=== PATIENT | female | born 1965 | race Caucasian/White ===

== ENCOUNTER 2024-04-02 00:43 | Observation (INO) ==
--- NOTE | 2024-04-02 01:00 | Emergency Department Note ---
History of Present Illness General Chief complaint: Abdominal Pain Stated complaint: SEVERAL ABDOMINAL PAIN Time Seen by Provider: 04/02/24 00:53 History of Present Illness Maximum Pain Intensity: 9 This 58-year-old female with no prior abdominal surgeries with type 2 diabetes managed by diet presents ER complaining of severe right upper quadrant epigastric pain tonight. Patient states she had a grilled cheese for dinner that she made herself. She tried to go the bathroom and make yourself vomit with no relief of symptoms. No history of similar symptoms in the past. Patient denies chest pain, dyspnea, fever, chills, flulike illness. Home Medications Medication Instructions Recorded Confirmed Type cholecalciferol (vitamin D3) 50 50 mcg PO DAILY 09/28/22 01/17/24 History mcg (2,000 unit) capsule multivitamin 1 tab PO DAILY 09/28/22 01/10/24 History niacin 50 mg tablet 50 mg PO DAILY 09/28/22 01/10/24 History omega 2-bzx-qcu-fish oil 60 mg-90 1 cap PO DAILY 09/28/22 01/10/24 History mg-500 mg capsule (Fish Oil) Juice Plus 1 cap PO DAILY 01/10/24 01/17/24 History magnesium 1 tab PO HS 01/10/24 01/10/24 History Allergies Allergy/AdvReac Type Severity Reaction Status Date / Time No Known Drug Allergies Allergy Verified 01/17/24 07:57 Past Med/Surg History Problem List (Updated 04/02/24 @ 04:08 by Shannon Casper PA-C) Abdominal pain, acute (Acute) Biliary colic (Acute) Type 2 diabetes mellitus with obesity Medical History PONV (postoperative nausea and vomiting) Prediabetes "I am no longer considered Type 2 but prediabetic." Diet Migraines "seasonal" HPV (human papilloma virus) infection hx Surgical History Hx of wisdom tooth extraction History of cryosurgery cervix- related to HPV - Hx of colonoscopy History of laminectomy 1991 Family History Grandfather (Maternal) Prostate cancer Grandmother Breast cancer Paternal & Maternal Father Thyroid disease Mother Thyroid disease Brother Parathyroid disease Grandfather (Paternal) Stroke Other Cancer Denies family history of Sudden Ovarian cancer Heart disease Myocardial infarction Colorectal cancer Social History Smoking Status: Never smoker Second Hand Exposure: No; Do You Dip or Chew Tobacco: No; Hx Alcohol Use: No Hx Substance Use: No Preferred Language: [place] Communication Ability: Effective Assembler Wire Mesh Gate Required: No Beliefs That Will Affect Care: None marital status: Single Current Living Situation: Alone current occupational status: employed current occupation: Physical Therapist Feels Safe at Home: Yes Childhood Exposure to Second-Hand Smoke: No Diet: regular Physical Activity Frequency: 3-4 Times per Week Seatbelt Use: always Assistive Devices: Glasses Review of Systems A total of 10 systems reviewed and were otherwise negative Physical Exam Vital Signs Vital Signs - 24 hr 04/02/24 00:47 04/02/24 00:57 04/02/24 01:26 Temperature 36.4 C L Temperature Source Temporal Artery Scan Pulse Rate 91 H 85 99 H Pulse Rate [Apical] Pulse Rate from SpO2 Sensor Pulse Rhythm Regular Pulse Rhythm [Apical] Respiratory Rate 22 Respiratory Effort / Characteristics Non-Labored Spontaneous Respiratory Depth Normal Respiratory Pattern Blood Pressure 178/89 H Blood Pressure [Right Arm] Blood Pressure Mean 118 Blood Pressure Mean [Right Arm] Pulse Oximetry 100 100 Oxygen Delivery Method Room Air Room Air Sepsis Recent Fever Within 48 Hours No Sepsis New/Unexplained Change in Mental Status No Sepsis Action Taken by Nursing No Action Required 04/02/24 01:36 04/02/24 01:54 04/02/24 02:30 Temperature Temperature Source Pulse Rate 87 84 82 Pulse Rate [Apical] Pulse Rate from SpO2 Sensor 88 84 Pulse Rhythm Pulse Rhythm [Apical] Respiratory Rate 20 22 20 Respiratory Effort / Characteristics Respiratory Depth Respiratory Pattern Blood Pressure 175/94 H Blood Pressure [Right Arm] Blood Pressure Mean 118 Blood Pressure Mean [Right Arm] Pulse Oximetry 98 99 100 Oxygen Delivery Method Room Air Room Air Room Air Sepsis Recent Fever Within 48 Hours Sepsis New/Unexplained Change in Mental Status Sepsis Action Taken by Nursing 04/02/24 02:48 04/02/24 02:56 04/02/24 03:00 Temperature Temperature Source Pulse Rate 88 79 Pulse Rate [Apical] 79 Pulse Rate from SpO2 Sensor Pulse Rhythm Pulse Rhythm [Apical] Regular Respiratory Rate 20 18 18 Respiratory Effort / Characteristics Non-Labored Spontaneous Respiratory Depth Normal Respiratory Pattern Regular Blood Pressure 161/99 H 171/98 H Blood Pressure [Right Arm] 175/94 H Blood Pressure Mean 117 149 Blood Pressure Mean [Right Arm] 121 Pulse Oximetry 100 100 100 Oxygen Delivery Method Room Air Room Air Room Air Sepsis Recent Fever Within 48 Hours Sepsis New/Unexplained Change in Mental Status Sepsis Action Taken by Nursing 04/02/24 03:00 Temperature Temperature Source Pulse Rate 101 H Pulse Rate [Apical] Pulse Rate from SpO2 Sensor Pulse Rhythm Pulse Rhythm [Apical] Respiratory Rate 23 Respiratory Effort / Characteristics Respiratory Depth Respiratory Pattern Blood Pressure 171/98 H Blood Pressure [Right Arm] Blood Pressure Mean 149 Blood Pressure Mean [Right Arm] Pulse Oximetry 98 Oxygen Delivery Method Room Air Sepsis Recent Fever Within 48 Hours Sepsis New/Unexplained Change in Mental Status Sepsis Action Taken by Nursing VITALS: Vitals are noted on the nurse's note and reviewed by myself. Vital signs stable. GENERAL: Pleasant female who appears in pain, in no acute distress, nondiaphoretic, well-developed well-nourished. SKIN: Capillary reflex less than 2 seconds. HEENT: Normocephalic. PERRLA. EOMI. Nares patent. Mucous membranes moist. Neck is supple without nuchal rigidity. HEART: Regular rate and rhythm LUNGS: Clear to auscultation bilaterally without wheezes, rales or rhonchi. No retractions or accessory muscle use. ABDOMEN: Positive bowel sounds x 4. Normal tympanic percussion. Soft, tender to palpation right upper quadrant, without masses or organomegaly. No guarding or rebound tenderness. no CVA tenderness MUSCULOSKELETAL: No gross musculoskeletal defects. NEURO: Patient was alert and oriented to person place and time. No focal neurological deficits. Course Administered Medications Morphine Sulfate (Morphine Sulfate 4 Mg/Ml 1 Ml Carp\\Vial) 4 mg IV Q15M PRN PRN Reason: Pain Stop: 04/16/24 00:56 Last Admin: 04/02/24 02:46 Dose: 4 mg Documented By: Admin: 04/02/24 01:27 Dose: 4 mg Documented By: ASW Discontinued Medications Famotidine (Pepcid 20mg Iv Push) 20 mg in 5 mls @ 2.5 mls/min IV NOW STA Stop: 04/02/24 00:58 Last Admin: 04/02/24 02:29 Dose: 2.5 mls/min Documented By: REBECCA Ioversol (Optiray 320 100ml) 100 ml IV ONCE ONE Stop: 04/02/24 03:18 Last Admin: 04/02/24 03:18 Dose: 93 ml Documented By: ELIS Ondansetron HCl (Ondansetron Inj 2 Mg/Ml 2 Ml Vial) 4 mg IV NOW STA Stop: 04/02/24 00:58 Last Admin: 04/02/24 01:27 Dose: 4 mg Documented By: DREW Ondansetron HCl (Ondansetron Inj 2 Mg/Ml 2 Ml Vial) 4 mg IV NOW STA Stop: 04/02/24 02:35 Last Admin: 04/02/24 02:46 Dose: 4 mg Documented By: REBECCA Medical Decision Making Medical Records Attestation: I reviewed the patient's medical records. Home Medications Current Medication List: was personally reviewed by me Laboratory Data Attestation: I reviewed the patient's lab results. 04/02/24 01:20 04/02/24 01:20 Lab Results 04/02/24 04/02/24 Range/Units 01:20 02:27 WBC 10.67 (4.8-10.8) K/ul RBC 4.73 (4.20-5.40) M/uL Hgb 13.7 (12.0-16.0) g/dl Hct 40.5 (37.0-47.0) % MCV 85.6 (80.0-100.0) fL MCH 29.0 (25.0-34.0) pg MCHC 33.8 (32.0-36.0) g/dL RDW Std Deviation 43.8 (36.4-46.3) fL RDW Coeff of [place]onzo 14.0 (11.5-14.5) % Plt Count 287 (130-400) K/uL MPV 9.8 (9.4-12.4) fL Immature Gran % (Auto) 0.3 % Neut % (Auto) 70.9 % Lymph % (Auto) 21.6 % Walton % (Auto) 5.6 % Eos % (Auto) 1.0 % Baso % (Auto) 0.6 % Neut # (Auto) 7.56 H (1.40-6.50) K/uL Lymph # (Auto) 2.31 (1.20-3.40) K/uL Walton # (Auto) 0.60 H (0.11-0.59) K/uL Eos # (Auto) 0.11 (0.00-0.50) K/uL Baso # (Auto) 0.06 (0.00-0.20) K/uL Immature Gran # (Auto) 0.03 (0.01-0.20) K/uL Sodium 139 (136-145) mmol/L Potassium 3.5 (3.5-5.1) mmol/L Chloride 103 (98-107) mmol/L Carbon Dioxide 26 (21-32) mmol/L Anion Gap 10 (3-11) BUN 13 (6-23) mg/dl Creatinine 0.82 (0.6-1.2) mg/dl Est Cr Clr Drug Dosing 84.6 ml/min eGFR 83.90 BUN/Creatinine Ratio 15.9 (10-20) Glucose 129 H (70-99(Fasting)) mg/dl Calcium 9.6 (8.6-10.3) mg/dl Total Bilirubin 0.4 (0.2-1.0) mg/dl AST 19 (13-39) U/L ALT 16 (7-52) U/L Alkaline Phosphatase 62 (34-104) U/L Troponin I High Sens 3.2 (0-14) pg/ml Total Protein 8.0 (6.0-8.3) gm/dl Albumin 4.7 (3.4-5.0) gm/dl Globulin 3.3 (2.5-4.0) gm/dl Albumin/Globulin Ratio 1.4 (0.9-2) Lipase 45 (11-82) U/L Urine Color Yellow Urine Appearance Clear (Clear) Urine pH 7.5 (4.5-7.5) Ur Specific [place] 1.012 (1.000-1.030) Urine Protein Negative (Negative) Urine Glucose (UA) Negative (Negative) Urine Ketones Trace H (Negative) Urine Blood Negative (Negative) Urine Nitrite Negative (Negative) Urine Bilirubin Negative (Negative) Urine Urobilinogen Negative (Negative) Ur Leukocyte Esterase Trace H (Negative) Urine WBC (Auto) 0-5 (0-5) /hpf Urine RBC (Auto) 0-2 (0-2) /hpf U Hyaline Cast (Auto) 0-2 (0-2) /lpf U Epithel Cells (Auto) 0-2 (0-2) /hpf Urine Bacteria (Auto) None Seen (None Seen) Imaging Data Attestation: I personally reviewed and interpreted this imaging study as follows: Radiologist's Impression: Gallbladder Ultrasound 04/02/24 00:58 EXAM: US gallbladder CLINICAL HISTORY: HX: NO PREV. RUQ PAIN. TECH NOTES: EXAM LIMITED BY INCREASED BODY HABITUS, BMI 35. PANC: LIMITED VIS DUE TO OVERLYING BOWEL. LIVER: 16.5 cm. ECHOGENIC REGION SUP RT LOBE,?FOCAL FATTY REGION. GB: WALL 1.8 mm. SMALL, SHADOWING, MOBILE?STONES, GRAVEL-SIZED. PT WAS GIVEN PAIN MEDS BEFORE EVAL, UNABLE TO ASSESS CHOU''S SIGN. CBD: 2.8 mm. LIMITED VIS RT KID: NO HYDRO. TECHNIQUE: Limited ultrasound of the liver and gallbladder was performed in grayscale and Doppler. Multiple images were obtained in transverse and longitudinal planes. COMPARISON: No prior studies are available for comparison. FINDINGS: Limited evaluation due to patient-related factors and overlying bowel gas shadows. Liver: The liver measures 16.5 cm in length. Mildly heterogeneous parenchymal echotexture of the liver, with a hyperechoic area in the superior right lobe. Hepatic vasculature appears normal. Gallbladder: The gallbladder is visualized and appears normal in size. The gallbladder wall measures 1.8 mm in thickness. A few small non-shadowing echogenic calculi are seen near the gallbladder neck. A focal cystic area along the gallbladder fundus may represent a Phrygian cap with possible internal echogenic shadowing calculi. No wall thickening or pericholecystic fluid was noted. No evidence of gallbladder wall edema or signs of acute cholecystitis. Biliary Tree: Common bile duct diameter: 2.8 mm. The common bile duct is within normal limits in caliber and not dilated. No evidence of choledocholithiasis or biliary obstruction. Additional: No hydronephrosis in the right kidney. IMPRESSION: 1. Limited evaluation due to patient-related factors and overlying bowel gas shadows. 2. Cholelithiasis, without any evidence of acute cholecystitis. 3. A focal cystic area along the gallbladder fundus may represent a Phrygian cap with possible internal shadowing calculi. 4. No evidence of choledocholithiasis or biliary obstruction. 5. Borderline enlarged liver. 6. Mildly heterogeneous parenchymal echotexture of the liver, with a hyperechoic area in the superior right lobe. Further evaluation with triphasic CT liver/MRI should be considered. Electronically signed by Candy Del Real 04-02-2024 03:26 AM Abdomen/Pelvis CT 04/02/24 02:36 EXAM: CT abd pelvis IV con only CLINICAL HISTORY: 93 ML OPTIRAY 320, PAIN AT RUQ TECHNIQUE: Contiguous axial images were obtained from the level of the diaphragm to the pubic symphysis without and with intravenous contrast. Coronal and sagittal reconstructions were likewise performed and indicated to increase the sensitivity for detecting clinically relevant pathology. If IV contrast material had not been administered, the likelihood of detecting abnormalities relevant to the patient's condition would have been substantially decreased. CT scan was performed according to ALARA (as low as reasonable achievable). COMPARISON: None. FINDINGS: The visualized lung bases are clear. The liver is normal in size and reduced attenuation. No focal liver lesions are seen. There is no intra or extrahepatic biliary ductal dilatation. Hepatic vasculature is patent. Gallbladder is overdistended. No radiodense calculi are noted within it. Minimal pericholecystic fat stranding is noted. A small 7 x 7 mm homogeneously enhancing reactive pericholecystic lymph node is noted. Homogeneously enhancing, the active, enlarged precaval lymph node of size 13 x 9.5 mm is also seen. The spleen, pancreas, and adrenal glands are unremarkable. The kidneys are normal in size and attenuation. There is no hydronephrosis or perinephric fat stranding. No renal calculi or renal masses are identified. The ureters are normal in caliber and no ureteral calculi are seen. The bladder is normal in contour. Pelvic viscera are unremarkable. No focal or diffuse bowel wall thickening or evidence of bowel obstruction is identified. The appendix is visualized in the right lower quadrant and appears within normal limits. Abdominal and pelvic vasculature is patent. No adenopathy or fluid collections are seen. No aggressive appearing osseous lesions are identified. IMPRESSION: 1. Gallbladder is overdistended. No radiodense calculi are noted within it. Minimal pericholecystic fat stranding is noted. A small 7 x 7 mm homogeneously enhancing reactive pericholecystic lymph node is noted. Homogeneously enhancing, reactive, enlarged, precaval lymph node of size 13 x 9.5 mm is also seen. These may represent possible early signs of acute cholecystitis with reactive lymphadenopathy. No significant pericholecystic collection or signs of perforation. 2. Hepatic steatosis. Electronically signed by Sam Kline 04-02-2024 03:58 AM MDM Narrative Prior records/ancillary studies reviewed. Triage Nursing notes reviewed. Additional history obtained from nursing. The patient's history was concerning for abdominal pain. Differential diagnosis: Etiologies such as appendicitis, diverticulitis, PUD, biliary pathology, UTI, pancreatitis, obstruction, mesenteric ischemia, aortic pathology, infections, inflammatory bowel disease, renal colic, as well as others were entertained. Physical examination findings: As above. ER treatment provided: An order was placed for continuous cardiac monitoring. The monitor shows a rate of 60-100 with a sinus rhythm per my Independent interpretation. Morphine, Zofran, Pepcid were ordered Mefoxin was ordered for concerns for acute cholecystitis On reassessment the patient felt better. Diagnostics interpreted by me: ECG: Ordered for upper abdominal pain EKG: Normal sinus, normal intervals, no acute ST-T wave changes, rate 84. Impression normal sinus rhythm independently interpreted by myself The labs Independently Interpreted by myself revealed no worrisome leukocytosis, normal LFTs, negative troponin No worrisome leukocytosis Imaging studies: Imaging was reviewed and read by radiology Consultation: A consultation was placed with the surgical team. The case was discussed and diagnostics were reviewed. The patient was evaluated in the ER for further treatment. Exam and history seem consistent with biliary colic with concerns for developing acute cholecystitis. Surgery was consulted and did evaluate the patient. They will admit the patient. Patient is agreeable. Stable labs. Afebrile. By the evaluation outlined above emergent etiologies such as appendicitis, diverticulitis, PUD, UTI, pancreatitis, obstruction, mesenteric ischemia, aortic pathology, inflammatory bowel disease, renal colic, as well as others were deemed relatively unlikely. The pt informed about the findings as listed above. All questions were answered and pleased with the treatment. The chart was completed utilizing [employer] voice recognition software. Grammatical errors, random word insertions, pronoun errors, and incomplete sentences are an occassional consequence of this system due to software limitations, ambient noise, and hardware issues. Any formal questions or concerns about the content, text, or information contained within the body of this dictation should be directly addressed to the physician assistant sales manager for clarification. Impression & Plan Biliary colic, Abdominal pain, acute Discharge Plan Visit Data Chief Complaint: Abdominal Pain Stated Complaint: SEVERAL ABDOMINAL PAIN ED Provider: Sandie Ramos ED Midlevel Provider: Shannon Casper Discharge Problem: Biliary colic, Abdominal pain, acute Patient Disposition: Being Evaluated by Surgeon Condition: Good Forms Stand Alone Forms: My [facility] [employer] Prescriptions Prescriptions: No Action omega 0-rvm-rju-fish oil [Fish Oil] 60-90-500 mg capsule 1 cap PO DAILY cholecalciferol (vitamin D3) 50 mcg (2,000 unit) capsule 50 mcg PO DAILY niacin 50 mg tablet 50 mg PO DAILY multivitamin Tablet 1 tab PO DAILY magnesium Tablet 1 tab PO HS Juice Plus 1 cap PO DAILY Referrals Referrals: Ale Angel MD [Primary Care Provider] -
[2024-04-02] MEDS: ONDANSETRON INJ 2 MG/ML 2 ML VIAL IV STA ×2 (01:27→02:46)
[2024-04-02] MEDS: MoRPHine SULFATE 4 MG/ML 1 ML CARP\\VIAL IV PRN (01:27)
[2024-04-02 01:38] LABS: Basophils # (auto) 0.06 K/uL (0.00-0.20); Basophils % (auto) 0.6 %; Eosinophils # (auto) 0.11 K/uL (0.00-0.50); Hematocrit (blood only) 40.5 % (37.0-47.0); Hemoglobin 13.7 g/dl (12.0-16.0); Immature Granulocytes # (auto) 0.03 K/uL (0.01-0.20); Immature Granulocytes % (auto) 0.3 %; Lymphocytes # (auto) 2.31 K/uL (1.20-3.40); Lymphocytes % (auto) 21.6 %; Mean Corpuscular Hgb Conc 33.8 g/dL (32.0-36.0); Mean Corpuscular Volume 85.6 fL (80.0-100.0); Mean Platelet Volume 9.8 fL (9.4-12.4); Monocytes % (auto) 5.6 %; Neutrophils # (auto) 7.56 K/uL (1.40-6.50); Neutrophils % (auto) 70.9 %; Platelet Count 287 K/uL (130-400); RDW Standard Deviation 43.8 fL (36.4-46.3); Red Blood Count 4.73 M/uL (4.20-5.40); White Blood Count 10.67 K/ul (4.8-10.8)
[2024-04-02 01:50] LABS: Albumin Globulin Ratio 1.4 (0.9-2); Albumin Level 4.7 gm/dl (3.4-5.0); BUN Creatinine Ratio 15.9 (10-20); Bilirubin,Total 0.4 mg/dl (0.2-1.0); Calcium 9.6 mg/dl (8.6-10.3); Creatinine Clr Calc Pharmacy 84.6 ml/min; Globulin 3.3 gm/dl (2.5-4.0); Potassium 3.5 mmol/L (3.5-5.1)
[2024-04-02 01:57] LABS: Troponin I High Sensitivity 3.2 pg/ml (0-14)
[2024-04-02] MEDS: FAMOTIDINE 20MG IV PUSH 20 MG/5 ML SYR IV STA (02:29)
[2024-04-02 03:00] LABS: Appearance Urine Clear (Clear); Bacteria Urine Automated None Seen (None Seen); Bilirubin Urine Negative (Negative); Blood Urine Negative (Negative); Cast Urine Automated 0-2 /lpf (0-2); Color Urine Yellow; Epithelial Cell Urine Auto 0-2 /hpf (0-2); Glucose Urine UA Negative (Negative); Ketones Urine Trace (Negative); Leukocyte Esterase Urine Trace (Negative); Nitrite Urine Negative (Negative); Protein Urine Negative (Negative); RBC Urine Automated 0-2 /hpf (0-2); Specific Gravity Urine 1.012 (1.000-1.030); Urobilinogen Urine Negative (Negative); WBC Urine Automated 0-5 /hpf (0-5); pH Urine 7.5 (4.5-7.5)
[2024-04-02] MEDS: OPTIRAY 320 100ml IV ONE (03:18)
--- NOTE | 2024-04-02 03:26 | Ultrasound Report ---
EXAM: US gallbladder CLINICAL HISTORY: HX: NO PREV. RUQ PAIN. TECH NOTES: EXAM LIMITED BY INCREASED BODY HABITUS, BMI 35. PANC: LIMITED VIS DUE TO OVERLYING BOWEL. LIVER: 16.5 cm. ECHOGENIC REGION SUP RT LOBE,?FOCAL FATTY REGION. GB: WALL 1.8 mm. SMALL, SHADOWING, MOBILE?STONES, GRAVEL-SIZED. PT WAS GIVEN PAIN MEDS BEFORE EVAL, UNABLE TO ASSESS CHOU''S SIGN. CBD: 2.8 mm. LIMITED VIS RT KID: NO HYDRO. TECHNIQUE: Limited ultrasound of the liver and gallbladder was performed in grayscale and Doppler. Multiple images were obtained in transverse and longitudinal planes. COMPARISON: No prior studies are available for comparison. FINDINGS: Limited evaluation due to patient-related factors and overlying bowel gas shadows. Liver: The liver measures 16.5 cm in length. Mildly heterogeneous parenchymal echotexture of the liver, with a hyperechoic area in the superior right lobe. Hepatic vasculature appears normal. Gallbladder: The gallbladder is visualized and appears normal in size. The gallbladder wall measures 1.8 mm in thickness. A few small non-shadowing echogenic calculi are seen near the gallbladder neck. A focal cystic area along the gallbladder fundus may represent a Phrygian cap with possible internal echogenic shadowing calculi. No wall thickening or pericholecystic fluid was noted. No evidence of gallbladder wall edema or signs of acute cholecystitis. Biliary Tree: Common bile duct diameter: 2.8 mm. The common bile duct is within normal limits in caliber and not dilated. No evidence of choledocholithiasis or biliary obstruction. Additional: No hydronephrosis in the right kidney. IMPRESSION: 1. Limited evaluation due to patient-related factors and overlying bowel gas shadows. 2. Cholelithiasis, without any evidence of acute cholecystitis. 3. A focal cystic area along the gallbladder fundus may represent a Phrygian cap with possible internal shadowing calculi. 4. No evidence of choledocholithiasis or biliary obstruction. 5. Borderline enlarged liver. 6. Mildly heterogeneous parenchymal echotexture of the liver, with a hyperechoic area in the superior right lobe. Further evaluation with triphasic CT liver/MRI should be considered. Electronically signed by Candy Del Real 04-02-2024 03:26 AM
--- NOTE | 2024-04-02 03:59 | CT Scan Report ---
EXAM: CT abd pelvis IV con only CLINICAL HISTORY: 93 ML OPTIRAY 320, PAIN AT RUQ TECHNIQUE: Contiguous axial images were obtained from the level of the diaphragm to the pubic symphysis without and with intravenous contrast. Coronal and sagittal reconstructions were likewise performed and indicated to increase the sensitivity for detecting clinically relevant pathology. If IV contrast material had not been administered, the likelihood of detecting abnormalities relevant to the patient's condition would have been substantially decreased. CT scan was performed according to ALARA (as low as reasonable achievable). COMPARISON: None. FINDINGS: The visualized lung bases are clear. The liver is normal in size and reduced attenuation. No focal liver lesions are seen. There is no intra or extrahepatic biliary ductal dilatation. Hepatic vasculature is patent. Gallbladder is overdistended. No radiodense calculi are noted within it. Minimal pericholecystic fat stranding is noted. A small 7 x 7 mm homogeneously enhancing reactive pericholecystic lymph node is noted. Homogeneously enhancing, the active, enlarged precaval lymph node of size 13 x 9.5 mm is also seen. The spleen, pancreas, and adrenal glands are unremarkable. The kidneys are normal in size and attenuation. There is no hydronephrosis or perinephric fat stranding. No renal calculi or renal masses are identified. The ureters are normal in caliber and no ureteral calculi are seen. The bladder is normal in contour. Pelvic viscera are unremarkable. No focal or diffuse bowel wall thickening or evidence of bowel obstruction is identified. The appendix is visualized in the right lower quadrant and appears within normal limits. Abdominal and pelvic vasculature is patent. No adenopathy or fluid collections are seen. No aggressive appearing osseous lesions are identified. IMPRESSION: 1. Gallbladder is overdistended. No radiodense calculi are noted within it. Minimal pericholecystic fat stranding is noted. A small 7 x 7 mm homogeneously enhancing reactive pericholecystic lymph node is noted. Homogeneously enhancing, reactive, enlarged, precaval lymph node of size 13 x 9.5 mm is also seen. These may represent possible early signs of acute cholecystitis with reactive lymphadenopathy. No significant pericholecystic collection or signs of perforation. 2. Hepatic steatosis. Electronically signed by Sam Kline 04-02-2024 03:58 AM
[2024-04-02] MEDS: cefOXitin 2,000 MG/60 ML BAG IV STA (04:43)
--- NOTE | 2024-04-02 05:08 | History & Physical Report ---
Date of Service April 02, 2024 Assessment & Plan (1) Acute cholecystitis: Plan: Patient is a 58-year-old female who no significant past medical or surgical history with complaints of acute onset of right upper quadrant pain. Patient was worked up and imaging and clinical signs concerning for possible acute cholecystitis. Labs reviewed and WBC and LFT are within normal limits. Patient was seen and evaluated in the ED early this morning. She is resting in bed, stab le vitals, and is nontoxic appearing. Despite having multiple doses of IV pain medication patient still continues with RUQ abdominal pain on exam and does not feel as though she'd be able to go home given the amount of pain she's experiencing. Patient will be admitted under observation to the surgical service. For now will keep NPO, IV hydration, and pain control. Will discuss patient's case with attending surgeon for final surgical recommendations and plan of care later this morning. History of Present Illness Chief Complaint: Abdominal pain Primary Care Provider: Ale Angel MD Patient is a 58-year-old female with no significant past medical or surgical history presented to the emergency department early this morning due to complaints of abdominal pain. Patient states the pain started suddenly last evening shortly after eating a grilled cheese for dinner. Originally the pain was located in her upper abdominal/epigastric region, rating it a 9/10 in severity, however it is now diffusely throughout her abdomen. Patient states she did experience associated nausea however did not have any episodes of vomiting. She denies ever having pain like this in the past. She tried to sleep off the pain however due to the severity she came to the ED for further evaluation. She denies any CP, SOB, new onset of fevers or chills, or changes in urinary or bowel habits since the onset of her pain. Patient was worked up and was found to have imaging concerning for overdistended gallbladder with stones and pericholecystic fat stranding. Allergies Allergy/AdvReac Type Severity Reaction Status Date / Time No Known Drug Allergies Allergy Verified 01/17/24 07:57 Home Medications Medication Instructions Recorded Confirmed Type cholecalciferol (vitamin D3) 50 50 mcg PO DAILY 09/28/22 01/17/24 History mcg (2,000 unit) capsule multivitamin 1 tab PO DAILY 09/28/22 01/10/24 History niacin 50 mg tablet 50 mg PO DAILY 09/28/22 01/10/24 History omega 1-tet-jiv-fish oil 60 mg-90 1 cap PO DAILY 09/28/22 01/10/24 History mg-500 mg capsule (Fish Oil) Juice Plus 1 cap PO DAILY 01/10/24 01/17/24 History magnesium 1 tab PO HS 01/10/24 01/10/24 History Past Med/Surg History Problem List (Updated 04/02/24 @ 05:04 by Joe August PA-C) Acute cholecystitis Abdominal pain, acute (Acute) Biliary colic (Acute) Type 2 diabetes mellitus with obesity Medical History PONV (postoperative nausea and vomiting) Prediabetes "I am no longer considered Type 2 but prediabetic." Diet Migraines "seasonal" HPV (human papilloma virus) infection hx Surgical History Hx of wisdom tooth extraction History of cryosurgery cervix- related to HPV - Hx of colonoscopy History of laminectomy 1991 Family History Grandfather (Maternal) Prostate cancer Grandmother Breast cancer Paternal & Maternal Father Thyroid disease Mother Thyroid disease Brother Parathyroid disease Grandfather (Paternal) Stroke Other Cancer Denies family history of Sudden Ovarian cancer Heart disease Myocardial infarction Colorectal cancer Social History Smoking Status: Never smoker Second Hand Exposure: No; Do You Dip or Chew Tobacco: No; Hx Alcohol Use: No Hx Substance Use: No Preferred Language: Vietnamese Communication Ability: Effective Assembler Seat Required: No Beliefs That Will Affect Care: None marital status: Single Current Living Situation: Alone current occupational status: employed current occupation: Physical Therapist Feels Safe at Home: Yes Childhood Exposure to Second-Hand Smoke: No Diet: regular Physical Activity Frequency: 3-4 Times per Week Seatbelt Use: always Assistive Devices: Glasses Review of Systems Review of Systems: All systems reviewed & are unremarkable except as noted in HPI & below Physical Exam Constitutional: WD/WN, vitals as above Respiratory: normal respiratory effort, lungs clear to auscultation Cardiovascular: RRR, no murmur, no edema Gastrointestinal (Abdomen): Abdomen soft, nondistended, significant TTP in the RUQ with +Bello's sign. No rebound or guarding Skin: no rashes, warm and dry Psychiatric: A+Ox3, euthymic affect Results & Data Results & Data Vital Signs (Past 12 Hours) Vital Signs Temp Pulse Pulse Resp BP BP Pulse Ox 04/02/24 04:30 89 15 98 04/02/24 04:00 92 H 23 158/91 H 100 04/02/24 04:00 86 19 148/115 H 100 04/02/24 03:30 88 16 151/102 H 98 04/02/24 03:00 101 H 23 171/98 H 98 04/02/24 03:00 79 18 171/98 H 100 04/02/24 02:56 88 18 161/99 H 100 04/02/24 02:48 79 20 175/94 H 100 04/02/24 02:30 82 20 175/94 H 100 04/02/24 01:54 84 22 99 04/02/24 01:36 87 20 98 04/02/24 01:26 99 H 04/02/24 00:57 85 100 04/02/24 00:47 36.4 C L 91 H 22 178/89 H 100 O2 Del Method 04/02/24 04:30 Room Air 04/02/24 04:00 Room Air 04/02/24 04:00 Room Air 04/02/24 03:30 Room Air 04/02/24 03:00 Room Air 04/02/24 03:00 Room Air 04/02/24 02:56 Room Air 04/02/24 02:48 Room Air 04/02/24 02:30 Room Air 04/02/24 01:54 Room Air 04/02/24 01:36 Room Air 04/02/24 01:26 04/02/24 00:57 Room Air 04/02/24 00:47 Room Air Diagnostic Findings EXAM: CT abd pelvis IV con only CLINICAL HISTORY: 93 ML OPTIRAY 320, PAIN AT RUQ TECHNIQUE: Contiguous axial images were obtained from the level of the diaphragm to the pubic symphysis without and with intravenous contrast. Coronal and sagittal reconstructions were likewise performed and indicated to increase the sensitivity for detecting clinically relevant pathology. If IV contrast material had not been administered, the likelihood of detecting abnormalities relevant to the patient's condition would have been substantially decreased. CT scan was performed according to ALARA (as low as reasonable achievable). COMPARISON: None. FINDINGS: The visualized lung bases are clear. The liver is normal in size and reduced attenuation. No focal liver lesions are seen. There is no intra or extrahepatic biliary ductal dilatation. Hepatic vasculature is patent. Gallbladder is overdistended. No radiodense calculi are noted within it. Minimal pericholecystic fat stranding is noted. A small 7 x 7 mm homogeneously enhancing reactive pericholecystic lymph node is noted. Homogeneously enhancing, the active, enlarged precaval lymph node of size 13 x 9.5 mm is also seen. The spleen, pancreas, and adrenal glands are unremarkable. The kidneys are normal in size and attenuation. There is no hydronephrosis or perinephric fat stranding. No renal calculi or renal masses are identified. The ureters are normal in caliber and no ureteral calculi are seen. The bladder is normal in contour. Pelvic viscera are unremarkable. No focal or diffuse bowel wall thickening or evidence of bowel obstruction is identified. The appendix is visualized in the right lower quadrant and appears within normal limits. Abdominal and pelvic vasculature is patent. No adenopathy or fluid collections are seen. No aggressive appearing osseous lesions are identified. IMPRESSION: 1. Gallbladder is overdistended. No radiodense calculi are noted within it. Minimal pericholecystic fat stranding is noted. A small 7 x 7 mm homogeneously enhancing reactive pericholecystic lymph node is noted. Homogeneously enhancing, reactive, enlarged, precaval lymph node of size 13 x 9.5 mm is also seen. These may represent possible early signs of acute cholecystitis with reactive lymphadenopathy. No significant pericholecystic collection or signs of perforation. 2. Hepatic steatosis. EXAM: US gallbladder CLINICAL HISTORY: HX: NO PREV. RUQ PAIN. TECH NOTES: EXAM LIMITED BY INCREASED BODY HABITUS, BMI 35. PANC: LIMITED VIS DUE TO OVERLYING BOWEL. LIVER: 16.5 cm. ECHOGENIC REGION SUP RT LOBE,?FOCAL FATTY REGION. GB: WALL 1.8 mm. SMALL, SHADOWING, MOBILE?STONES, GRAVEL-SIZED. PT WAS GIVEN PAIN MEDS BEFORE EVAL, UNABLE TO ASSESS BELLO''S SIGN. CBD: 2.8 mm. LIMITED VIS RT KID: NO HYDRO. TECHNIQUE: Limited ultrasound of the liver and gallbladder was performed in grayscale and Doppler. Multiple images were obtained in transverse and longitudinal planes. COMPARISON: No prior studies are available for comparison. FINDINGS: Limited evaluation due to patient-related factors and overlying bowel gas shadows. Liver: The liver measures 16.5 cm in length. Mildly heterogeneous parenchymal echotexture of the liver, with a hyperechoic area in the superior right lobe. Hepatic vasculature appears normal. Gallbladder: The gallbladder is visualized and appears normal in size. The gallbladder wall measures 1.8 mm in thickness. A few small non-shadowing echogenic calculi are seen near the gallbladder neck. A focal cystic area along the gallbladder fundus may represent a Phrygian cap with possible internal echogenic shadowing calculi. No wall thickening or pericholecystic fluid was noted. No evidence of gallbladder wall edema or signs of acute cholecystitis. Biliary Tree: Common bile duct diameter: 2.8 mm. The common bile duct is within normal limits in caliber and not dilated. No evidence of choledocholithiasis or biliary obstruction. Additional: No hydronephrosis in the right kidney. IMPRESSION: 1. Limited evaluation due to patient-related factors and overlying bowel gas shadows. 2. Cholelithiasis, without any evidence of acute cholecystitis. 3. A focal cystic area along the gallbladder fundus may represent a Phrygian cap with possible internal shadowing calculi. 4. No evidence of choledocholithiasis or biliary obstruction. 5. Borderline enlarged liver. 6. Mildly heterogeneous parenchymal echotexture of the liver, with a hyperechoic area in the superior right lobe. Further evaluation with triphasic CT liver/MRI should be considered. Code Status & VTE Plan VTE Prophylaxis Plan VTE Prophylaxis will be ordered: Yes PG Care Time/CCT Total # of Minutes Spent Total Time Spent with Patient: Total time spent is greater than 50% in coordination of care (as documented) at patient's floor/unit and/or counseling patient: [place] [address] INT INP/OBS CARE 1/40MIN Patient Type New History Problem Focused Exam Problem Focused Medical Decision Making Straight Forward Diagnoses Acute cholecystitis K81.0
[2024-04-02] MEDS: ACETAMINOPHEN 1,000 MG/100 ML VIAL IV STA (06:01)
--- NOTE | 2024-04-02 08:11 | Electrocardiogram Report ---
Test Reason : Blood Pressure : */* mmHG Vent. Rate : 84 BPM Atrial Rate : 84 BPM P-R Int : 132 ms QRS Dur : 82 ms QT Int : 384 ms P-R-T Axes : 42 58 53 degrees QTcB Int : 453 ms Normal sinus rhythm Normal ECG No previous ECGs available Confirmed by Eduar Duarte ([id number]) on 04/02/2024 8:11:23 AM Referred By: REFERRED SELF Confirmed By: Eduar Duarte
[2024-04-02] MEDS ORDERED: MoRPHine SULFATE 4 MG/ML 1 ML CARP\\VIAL IV PRN (08:20)
[2024-04-02] MEDS ORDERED: ACETAMINOPHEN 1,000 MG/100 ML VIAL IV PRN (08:20)
[2024-04-02] MEDS ORDERED: ONDANSETRON INJ 2 MG/ML 2 ML VIAL IV PRN (08:20)
[2024-04-02] MEDS ORDERED: PIPERACILLIN/TAZOBACTAM 4.5 GM/100 ML BAG IV SCH (08:20)
[2024-04-02] MEDS: SODIUM CHLORIDE 0.9% 1,000 ML IV SCH (08:53)
[2024-04-02] MEDS: MoRPHine SULFATE 2 MG/ML CARP IV PRN (10:00)
[2024-04-02] MEDS ORDERED: KETOROLAC 30 MG/ML VIAL ONE (10:30)
[2024-04-02] MEDS ORDERED: ROCURONIUM BROMIDE 10 MG/ML 5 ML VIAL IV ONE (10:30)
[2024-04-02] MEDS ORDERED: ONDANSETRON INJ 2 MG/ML 2 ML VIAL ONE (10:30)
[2024-04-02] MEDS ORDERED: PROPOFOL IV EMULSION 10 MG/ML 20 ML VIAL IV ONE (10:30)
[2024-04-02] MEDS ORDERED: SUGAMMADEX SODIUM 200 MG/2 ML VIAL IV ONE ×2 (10:30→12:16)
[2024-04-02] MEDS ORDERED: MIDAZOLAM HCL 1 MG/ML 2ML VIAL ONE (10:30)
[2024-04-02] MEDS ORDERED: DEXAMETHASONE SOD INJ 4 MG/ML VIAL ONE (10:30)
[2024-04-02] MEDS ORDERED: LIDOCAINE 2% 2 ML VIAL/AMP(20MG/ML) INFIL ONE (10:30)
[2024-04-02] MEDS ORDERED: fentaNYL citrate PF 100 MCG/2 ML VIAL ONE ×2 (10:30→12:09)
--- NOTE | 2024-04-02 10:45 | History & Physical Bridge Note ---
Date of Service April 02, 2024 History & Physical Bridge Note I have examined the patient, reviewed the History & Physical and in the interval since the performance of the History & Physical I have noted the following changes of clinical significance: no changes noted discussed option/risks ( bleeding/infection/bile duct injury/other organ injury/dvt/pe/mi/cva etc....) questions answered. will proceed today with hetal [email or web address] agreeable.
--- NOTE | 2024-04-02 10:48 | Anesthesiology Consultation ---
Date of Service April 02, 2024 Assessment & Plan Chart Review Chart Review: Acceptable Risk for Surgery and Patient NOT seen in Pre Admission Testing Consults Requested none History Surgery Operation Date: 04/02/24 07:00 Proposed Procedures p Laparoscopic Cholecystectomy - Luisito Zurita DO Height/Weight Height: 5 ft 4 in Weight: 91.2 kg Allergies Allergy/AdvReac Type Severity Reaction Status Date / Time No Known Drug Allergies Allergy Verified 01/17/24 07:57 Medications Home Medications Medication Instructions Recorded Confirmed Last Taken cholecalciferol (vitamin D3) 50 50 mcg PO DAILY 09/28/22 01/17/24 1 Week Ago mcg (2,000 unit) capsule ~01/10/24 multivitamin 1 tab PO DAILY 09/28/22 01/10/24 1 Week Ago ~01/10/24 niacin 50 mg tablet 50 mg PO DAILY 09/28/22 01/10/24 1 Week Ago ~01/10/24 omega 8-day-qsj-fish oil 60 mg-90 1 cap PO DAILY 09/28/22 01/10/24 1 Week Ago mg-500 mg capsule (Fish Oil) ~01/10/24 Juice Plus 1 cap PO DAILY 01/10/24 01/17/24 1 Week Ago ~01/10/24 magnesium 1 tab PO HS 01/10/24 01/10/24 1 Week Ago ~01/10/24 oxycodone 5 mg tablet 5 - 10 mg (1 - 2 x 5 mg) PO 04/02/24 Unknown .[id number] PRN pain #15 tabs Active Medications Generic Name Dose Route Start Last Admin Trade Name Freq PRN Reason Stop Dose Admin Sodium Chloride 1,000 mls @ 80 mls/hr 04/02/24 08:20 04/02/24 08:53 Nss IV 04/03/24 08:19 80 mls/hr .[id number] CRISTINA Administration Morphine Sulfate 2 mg 04/02/24 08:20 04/02/24 10:00 Morphine Sulfate 2 Mg/Ml Carp IV 04/16/24 08:19 2 mg Q3H PRN Administration Pain (1,2,3,4,5) & Pre PT Past Medical History Medical History PONV (postoperative nausea and vomiting) Prediabetes "I am no longer considered Type 2 but prediabetic." Diet Migraines "seasonal" HPV (human papilloma virus) infection hx Past Family History Family History Grandfather (Maternal) Prostate cancer Grandmother Breast cancer Paternal & Maternal Father Thyroid disease Mother Thyroid disease Brother Parathyroid disease Grandfather (Paternal) Stroke Other Cancer Denies family history of Sudden Ovarian cancer Heart disease Myocardial infarction Colorectal cancer Past Surgical History Surgical History Hx of wisdom tooth extraction History of cryosurgery cervix- related to HPV - Hx of colonoscopy History of laminectomy 1991 Social History Smoking Status: Never smoker Do You Dip or Chew Tobacco: No Hx Alcohol Use: No Hx Substance Use: No substance use type: does not use Physical Exam Vital Signs Last Vital Signs Temp 36.6 C 04/02/24 08:19 Pulse 94 H 04/02/24 08:19 Resp 16 04/02/24 08:19 BP 124/78 04/02/24 08:19 Pulse Ox 98 04/02/24 08:19 O2 Del Method Room Air 04/02/24 08:19 Testing Laboratory Results 04/02/24 01:20 04/02/24 01:20 Urine Color Yellow 04/02/24 02:27 Urine Appearance Clear (Clear) 04/02/24 02:27 Urine pH 7.5 (4.5-7.5) 04/02/24 02:27 Ur Specific Homer 1.012 (1.000-1.030) 04/02/24 02:27 Urine Protein Negative (Negative) 04/02/24 02:27 Urine Glucose (UA) Negative (Negative) 04/02/24 02:27 Urine Ketones Trace (Negative) H 04/02/24 02:27 Urine Nitrite Negative (Negative) 04/02/24 02:27 Ur Leukocyte Esterase Trace (Negative) H 04/02/24 02:27 Urine WBC (Auto) 0-5 /hpf (0-5) 04/02/24 02:27 Urine RBC (Auto) 0-2 /hpf (0-2) 04/02/24 02:27 U Hyaline Cast (Auto) 0-2 /lpf (0-2) 04/02/24 02:27 U Epithel Cells (Auto) 0-2 /hpf (0-2) 04/02/24 02:27 Urine Bacteria (Auto) None Seen (None Seen) 04/02/24 02:27
[2024-04-02] MEDS ORDERED: ATROPINE SULFATE 0.1 MG/ML 10ML SYR IV PRN (11:15)
[2024-04-02] MEDS ORDERED: ePHEDrine sulfate 50 MG/ML AMP IV PRN (11:15)
[2024-04-02] MEDS: ceFAZolin 2000MG 2,000 MG/15 ML SYR IV ONE (11:20)
[2024-04-02] MEDS: BUPIVACAINE/EPINEPHRINE 0.5% MPF 1:200,000 30 ML VIAL ONE (12:05)
[2024-04-02] MEDS: ceFAZolin 2,000 MG/15 ML IV PUSH IV ONE (12:07)
--- NOTE | 2024-04-02 12:15 | Operative Report ---
PG Post Operative Report Pre & Post Diagnosis Operation Date: 04/02/24 07:00 Pre-Op Diagnosis: Acute Cholecystitis Post-Op Diagnosis: Acute Cholecystitis I identified the patient and participated in the time-out.: Yes Procedure Operation Date: 04/02/24 07:00 Actual Procedures p Laparoscopic Cholecystectomy(Not Applicable) - Luisito Zurita DO Surgeon Luisito Zurita DO Investigations Chief nicole Billy Estimated Blood Loss 20 Findings Consistent with Post-Op Diagnosis Specimens gallbladder Description of Procedure After informed consent was obtained the patient was taken to the operating room and placed in the supine position. After successful intubation the abdomen was sterilely prepped and draped in usual fashion. A periumbilical incision was made with an 11 blade scalpel and carried down through the soft tissue using electrocautery. The anterior rectus fascia was opened using electrocautery and 2 #0 Vicryl stay sutures were placed. The peritoneum was elevated with hemostats and incised under direct vision using Metzenbaum scissors. A finger sweep was performed and a 12 mm Webber trocar was placed. The abdomen was insufflated to 18 mmHg. The laparoscope was inserted and the abdomen was examined in 360. No gross abnormalities were identified. A subxiphoid 5 mm port and 2 right upper quadrant 5 mm ports were placed under direct vision. The patient was placed in a reverse Trendelenburg position and slightly airplaned to the left. The gallbladder was acutely infected and inflamed. I had used a gallbladder needle to drain thick bile from it before I could grasp it. Once I had done this, the gallbladder was grasped and elevated superiorly and laterally. A [place] dissector was used to take down adhesions around the neck of the gallbladder. The cystic duct was identified and skeletonized. It was clipped twice proximally and once distally and transected using a laparoscopic scissor. In similar fashion the cystic artery was identified and skeletonized clipped and divided. The gallbladder was removed from the gallbladder fossa with electrocautery. It was placed into an Endo Catch bag. Thorough irrigation was performed. At the end of the procedure there was adequate hemostasis and no evidence of any bile leaks. A final look around the abdomen showed no other abnormalities. The gallbladder and trochars were all removed and the abdomen was desufflated. The fascia of the camera port was closed using 0 Vicryl in a [id number] fashion. All the wounds were irrigated and closed using 4-0 Monocryl. Marcaine was injected around them for postoperative analgesia and skin glue used as a dressing. The patient was awaken extubated and transferred to recovery in stable condition. My RESEARCH ENVIRONMENTAL ENGINEER assistant nurse manager was present throughout the entire case... helped with prepping the patient. With exposure for trocar placement, as well as retracted the gallbladder throughout the case and also assisted with wound closure and dressing placement. I attest to the content of the Intraoperative Record and any orders documented therein. Any exceptions are noted below.
[2024-04-02] MEDS: DROPERIDOL 5 MG/2 ML VIAL IV PRN (12:36)
[2024-04-02] MEDS: fentaNYL citrate PF 100 MCG/2 ML VIAL IV PRN (12:41)
--- NOTE | 2024-04-02 13:12 | Anesthesiology Progress Note ---
Date of Service April 02, 2024 Anesthesia Post Procedure Vital Signs Vital Signs: Temp Pulse Pulse Resp BP BP BP 04/02/24 13:05 37.1 C 106 H 20 145/94 H 04/02/24 12:55 105 H 15 142/109 H 04/02/24 12:45 108 H 26 H 173/125 H 04/02/24 12:35 112 H 22 121/95 04/02/24 12:26 36.4 C L 112 H 16 167/102 H 04/02/24 11:05 37.1 C 103 H 18 166/81 H 04/02/24 08:19 36.6 C 94 H 16 124/78 04/02/24 07:30 153/92 H 04/02/24 07:30 95 H 15 04/02/24 07:15 90 14 04/02/24 06:30 96 H 20 162/93 H 04/02/24 06:00 92 H 17 162/93 H 04/02/24 05:31 84 04/02/24 05:30 82 20 174/92 H 04/02/24 04:30 89 15 04/02/24 04:00 92 H 23 158/91 H 04/02/24 04:00 86 19 148/115 H 04/02/24 03:30 88 16 151/102 H 04/02/24 03:00 101 H 23 171/98 H 04/02/24 03:00 79 18 171/98 H 04/02/24 02:56 88 18 161/99 H 04/02/24 02:48 79 20 175/94 H 04/02/24 02:30 82 20 175/94 H 04/02/24 01:54 84 22 04/02/24 01:36 87 20 04/02/24 01:26 99 H 04/02/24 00:57 85 04/02/24 00:47 36.4 C L 91 H 22 178/89 H Pulse Ox O2 Del Method O2 Flow Rate 04/02/24 13:05 95 Nasal Cannula 2 04/02/24 12:55 98 Oxymask 5 04/02/24 12:45 97 Oxymask 11 04/02/24 12:35 92 Oxymask 11 04/02/24 12:26 92 Oxymask 11 04/02/24 11:05 97 Room Air 04/02/24 08:19 98 Room Air 04/02/24 07:30 04/02/24 07:30 100 04/02/24 07:15 98 04/02/24 06:30 93 Room Air 04/02/24 06:00 96 Room Air 04/02/24 05:31 04/02/24 05:30 100 Room Air 04/02/24 04:30 98 Room Air 04/02/24 04:00 100 Room Air 04/02/24 04:00 100 Room Air 04/02/24 03:30 98 Room Air 04/02/24 03:00 98 Room Air 04/02/24 03:00 100 Room Air 04/02/24 02:56 100 Room Air 04/02/24 02:48 100 Room Air 04/02/24 02:30 100 Room Air 04/02/24 01:54 99 Room Air 04/02/24 01:36 98 Room Air 04/02/24 01:26 04/02/24 00:57 100 Room Air 04/02/24 00:47 100 Room Air Pain Intensity Abdomen: Pain Intensity: 8 Transfer of Care Handoff Completed per policy Notes Mental Status: alert / awake / arousable Patient Amnestic to Procedure: Yes Nausea / Vomiting: adequately controlled Pain: adequately controlled Airway Patency, RR, SpO2: stable & adequate BP & HR: stable & adequate Hydration State: stable & adequate Anesthetic Complications: no major complications apparent and Pt Satisfied with anesthetic care
[2024-04-02] MEDS ORDERED: oxyCODONE HCL IR 5 MG TAB (IMMEDIATE RELEASE) PO PRN ×2 (13:17)
[2024-04-03 07:25] LABS: Basophils # (auto) 0.05 K/uL (0.00-0.20); Basophils % (auto) 0.3 %; Hematocrit (blood only) 38.2 % (37.0-47.0); Hemoglobin 12.7 g/dl (12.0-16.0); Immature Granulocytes # (auto) 0.08 K/uL (0.01-0.20); Immature Granulocytes % (auto) 0.5 %; Lymphocytes # (auto) 2.52 K/uL (1.20-3.40); Lymphocytes % (auto) 15.4 %; Mean Corpuscular Hemoglobin 29.7 pg (25.0-34.0); Mean Corpuscular Hgb Conc 33.2 g/dL (32.0-36.0); Mean Corpuscular Volume 89.5 fL (80.0-100.0); Mean Platelet Volume 10.5 fL (9.4-12.4); Monocytes % (auto) 5.5 %; Neutrophils # (auto) 12.78 K/uL (1.40-6.50); Neutrophils % (auto) 78.3 %; Platelet Count 272 K/uL (130-400); RDW Coefficient of Variation 14.6 % (11.5-14.5); RDW Standard Deviation 47.7 fL (36.4-46.3); Red Blood Count 4.27 M/uL (4.20-5.40); White Blood Count 16.33 K/ul (4.8-10.8)
[2024-04-03 07:57] LABS: Albumin Globulin Ratio 1.4 (0.9-2); Albumin Level 4.2 gm/dl (3.4-5.0); BUN Creatinine Ratio 14.6 (10-20); Bilirubin,Total 1.1 mg/dl (0.2-1.0); Calcium 8.7 mg/dl (8.6-10.3); Creatinine Clr Calc Pharmacy 83.8 ml/min; Total Protein 7.2 gm/dl (6.0-8.3)
--- NOTE | 2024-04-03 08:03 | Surgery Progress Note ---
Date of Service April 03, 2024 Assessment & Plan (1) Acute cholecystitis: Plan: POD#1 lap gume WBC 16, Hbg 12.7. tb 1.1, ast 69, alt 58. vitals stable pt doing well, expected post op pain. no n/v will advance diet to regular if goes well anticipate discharge to home today dispo instructions reviewed, asked to f/u in clinic within 1-2 weeks for post op check as above. feeling ok however wbc up to 16,000 and LFT's slightly up. will monitor for one more day. recheck labs...likely d/c tomorrow. Dr. lCeary covering for weekend. Admission and Anticipated Discharge Date Admission Date: April 02, 2024 Subjective Patient feeling well. Describes some expected post op discomfort that is manageable. Tolerating clears, no n/v. walking the halls Physical Exam Physical Exam: awake/alert, no distress Respiratory: normal respiratory effort Gastrointestinal (Abdomen): Inspection/Auscultation: + abdominal surgical incision (c/d/i with skin glue); abdomen not distended Percussion/Palpation: + abdomen tender (expected michelle incisional discomfort to palpation ) and abdomen soft Results & Data Vital Signs (Past 12 Hours) Vital Signs Temp Pulse Resp BP BP Pulse Ox O2 Del Method 04/03/24 07:38 99.5 F 93 H 20 128/75 95 Room Air 04/03/24 04:37 98.6 F 92 H 17 117/74 93 Room Air 04/02/24 23:29 98.2 F 97 H 18 112/69 96 Room Air 04/02/24 20:30 98.4 F 90 19 126/79 95 Room Air PG Care Time/CCT Total # of Minutes Spent Total Time Spent with Patient: Total time spent is greater than 50% in coordination of care (as documented) at patient's floor/unit and/or counseling patient: Coding Level of Care Code 40409 Post Operative Follow-Up Diagnoses Acute cholecystitis K81.0
[2024-04-03] MEDS ORDERED: PIPERACILLIN/TAZOBACTAM 4.5 GM/100 ML BAG IV SCH (12:00)
[2024-04-03] MEDS: ACETAMINOPHEN 325 MG TAB PO PRN (12:29)
[2024-04-03] MEDS: ceFAZolin 2000MG 2,000 MG/15 ML SYR IV SCH (13:13)
--- NOTE | 2024-04-04 06:41 | Surgery Progress Note ---
Date of Service April 04, 2024 Assessment & Plan (1) Acute cholecystitis: Plan: POD#2 lap gume Yesterday WBC increased to 16, pending AM WBC. Afebrile and VSS Patient overall doing well and pain is well controlled Pending AM labs but if improving will anticipate d/c today. Did review post-op instructions with patient. Admission and Anticipated Discharge Date Admission Date: April 02, 2024 Supervising Physician Co-Signing Physician Notes Patient seen and examined, labs reviewed, agree with above. POD #2 laparoscopic cholecystectomy. Feeling much better today, tolerating diet. Abdomen soft, incisions without infection. WBC normalized, LFTs downtrending. DC to home, discharge instructions reviewed, return precautions given. Follow-up with Dr. Zurita. Subjective Patient feeling well, states pain currently well controlled Tolerating diet without any issues Patient expresses she would like to go home today VSS, afebrile, denies any CP, SOB Physical Exam Constitutional: WD/WN, vitals as above Respiratory: normal respiratory effort, lungs clear to auscultation Cardiovascular: RRR, no murmur, no edema Gastrointestinal (Abdomen): Abdomen soft, nondistended, +appropriate TTP over surgical sites. Incisions are c/d/i without any overlying signs of infection Skin: no rashes, warm and dry Results & Data Vital Signs (Past 12 Hours) Vital Signs Temp Pulse Resp BP Pulse Ox O2 Del Method 04/04/24 00:37 36.5 C 92 H 14 110/71 93 Room Air 04/03/24 19:43 36.7 C 92 H 14 121/79 92 Room Air PG Care Time/CCT Total # of Minutes Spent Total Time Spent with Patient: Total time spent is greater than 50% in coordination of care (as documented) at patient's floor/unit and/or counseling patient: Coding Level of Care Code 99880 Post Operative Follow-Up Diagnoses Acute cholecystitis K81.0
[2024-04-04 07:09] LABS: Basophils # (auto) 0.05 K/uL (0.00-0.20); Basophils % (auto) 0.5 %; Hematocrit (blood only) 38.1 % (37.0-47.0); Hemoglobin 12.5 g/dl (12.0-16.0); Immature Granulocytes # (auto) 0.18 K/uL (0.01-0.20); Immature Granulocytes % (auto) 1.7 %; Lymphocytes # (auto) 2.27 K/uL (1.20-3.40); Mean Corpuscular Hemoglobin 29.2 pg (25.0-34.0); Mean Corpuscular Hgb Conc 32.8 g/dL (32.0-36.0); Mean Platelet Volume 9.9 fL (9.4-12.4); Monocytes # (auto) 0.69 K/uL (0.11-0.59); Monocytes % (auto) 6.7 %; Neutrophils # (auto) 7.04 K/uL (1.40-6.50); Neutrophils % (auto) 68.1 %; Platelet Count 257 K/uL (130-400); RDW Coefficient of Variation 14.4 % (11.5-14.5); RDW Standard Deviation 47.2 fL (36.4-46.3); Red Blood Count 4.28 M/uL (4.20-5.40); White Blood Count 10.33 K/ul (4.8-10.8)
[2024-04-04 07:38] LABS: Albumin Globulin Ratio 1.2 (0.9-2); Albumin Level 3.9 gm/dl (3.4-5.0); BUN Creatinine Ratio 14.5 (10-20); Bilirubin,Total 0.6 mg/dl (0.2-1.0); Calcium 8.6 mg/dl (8.6-10.3); Creatinine Clr Calc Pharmacy 82.8 ml/min; Globulin 3.3 gm/dl (2.5-4.0); Potassium 3.8 mmol/L (3.5-5.1); Total Protein 7.2 gm/dl (6.0-8.3)
[2024-04-04 08:05] VITALS: PULSE 90; RESP 16; TEMP 98.6; O2SAT 95
[2024-04-04 11:35] VITALS: BP 126/79
--- NOTE | 2024-04-08 07:14 | Discharge Summary ---
Date of Service April 04, 2024 Admission HPI Per Admitting Provider Patient is a 58-year-old female with no significant past medical or surgical history presented to the emergency department early this morning due to complaints of abdominal pain. Patient states the pain started suddenly last evening shortly after eating a grilled cheese for dinner. Originally the pain was located in her upper abdominal/epigastric region, rating it a 9/10 in severity, however it is now diffusely throughout her abdomen. Patient states she did experience associated nausea however did not have any episodes of vomiting. She denies ever having pain like this in the past. She tried to sleep off the pain however due to the severity she came to the ED for further evaluation. She denies any CP, SOB, new onset of fevers or chills, or changes in urinary or bowel habits since the onset of her pain. Patient was worked up and was found to have imaging concerning for overdistended gallbladder with stones and pericholecystic fat stranding. Principal Diagnosis acute cholecystitis Discharge Exam awake/alert, no distress Constitutional no acute distress Respiratory normal respiratory effort; no respiratory distress Gastrointestinal (Abdomen) Inspection/Auscultation: + abdominal surgical incision (c/d/i with skin glue); abdomen not distended Percussion/Palpation: + abdomen tender (expected michelle incisional discomfort to palpation ) and abdomen soft Psychiatric Orientation: alert and oriented x 3 Discharge Data Allergies Allergy/AdvReac Type Severity Reaction Status Date / Time No Known Drug Allergies Allergy Unknown Verified 04/02/24 11:07 Consultations 04/02/24 04:19 ED Decision to Admit Stat Procedures Performed Operation Date: 04/02/24 07:00 Actual Procedures p Laparoscopic Cholecystectomy(Not Applicable) - Luisito Zurita DO Ordered Studies 04/02/24 00:58 US gallbladder Stat 04/02/24 02:36 CT Abd and Pelvis [CT abd pelvis IV con only] Stat Hospital Course (1) Acute cholecystitis: This is a 58 year old female who presented to the [facility] ED on 04/02/24 with RUQ abdominal pain. Workup in the ED showed a CT a/p concerning for choelithiasis, and a Gallbladder US showed an overly distended gallbladder (see HPI for full details). The patient was tender to palpation in the RUQ. Patient made NPO with IVF and booked for the OR. On 04/02/24 the patient went to the OR with Dr Zurita for a Laparoscopic Cholecystectomy. The patient tolerated the procedure well, see operative report for full details. Post operatively the patient's diet was advanced, pain managed on prn meds, and incisions clean/dry/intact. On POD 2 the patient was deemed stable for discharge to home. The patient was given discharge instructions, follow up recommendations, return precautions and a prescription for narcotic pain medication. Total Time Total Time Spent Total Time Spent (In Minutes): 10 Discharge Plan Discharge Items Patient Disposition: Home - Self-Care Reason For Visit: ACUTE CHOLECYSTITIS Discharge Diagnosis: laparoscopic cholecystectomy Condition on Discharge: Good Activity: Per Instructions section Lifting: No more than 10 pounds Bathing Comment: you can shower tomorrow. NO soaking in pool/bath for 2 weeks Exercise/Sports: Wait until after follow-up appointment Driving/Machine Use: no driving if taking narcotic pain medication Non-emergency contact: Surgeon Call non-emergency contact if: you have any medication questions, your symptoms worsen, you have a fever, your temperature is above 101.5, your wound has increased redness, your wound has increased drainage and your wound pain has increased Follow-up/Referrals: Luisito Zurita, [Surgeon] - (call office for follow up in 2 weeks ) Ale Angel MD [Primary Care Provider] - Diet: Regular Addtl Attending Provider Instructions: You have surgical glue called dermabond on your surgical site incisions. You may shower with this on. This will tend to come off within a couple of weeks. Do not pick at it. You may purchase Tylenol and/or Ibuprofen over the counter if needed for additional pain control over the next few days. Take per manufacturers instructions Pending Studies at Discharge: Yes Studies:: surgical pathology Stand-Alone Forms: My [facility] [employer] Light, Smoking Cessation Medications and DC Order Prescriptions: New oxycodone 5 mg tablet 5 - 10 mg PO .[id number] MDD no more than 6 tabs in 24hours PRN (Reason: pain) Qty: 15 0RF Continued omega 5-dcq-nid-fish oil [Fish Oil] 60-90-500 mg capsule 1 cap PO DAILY cholecalciferol (vitamin D3) 50 mcg (2,000 unit) capsule 50 mcg PO DAILY niacin 50 mg tablet 50 mg PO DAILY multivitamin Tablet 1 tab PO DAILY magnesium Tablet 1 tab PO HS Juice Plus 1 cap PO DAILY Discharge Orders: Discharge Order (Routine); Ordered 04/04/24 Ordered By: Darrion Cleary Admission Data Admit Date/Time: 04/02/24 04:57 Attending Provider: Luisito Zurita Admit Provider: Luisito Zurita Primary Care Provider: Ale Angel Other Providers: Luisito Zurita Other Interventions: Discharge Summary Assessment (RN) Last Done: 04/04/24 11:33 Supervising Physician Co-Signing Physician Notes Patient seen and examined, labs reviewed, agree with above. POD #2 laparoscopic cholecystectomy. Feeling much better today, tolerating diet. Abdomen soft, incisions without infection. WBC normalized, LFTs downtrending. DC to home, discharge instructions reviewed, return precautions given. Follow-up with Dr. Zurita. Coding Level of Care Code 92021 IN/OBS DISCH 30 MIN/LESS Diagnoses Acute cholecystitis K81.0
== END 2024-04-04 12:19 | disposition home or self-care (01) ==
LOC: ED 00:43 → 3W 00:43